=== PATIENT | male | born 1950 | race Caucasian/White ===

== ENCOUNTER 2021-11-19 17:35 | Inpatient (IN) ==
[2021-11-19] MEDS ORDERED: ONDANSETRON 4 MG/2 ML VIAL IV PRN (19:09)
[2021-11-19] MEDS ORDERED: ZOLPIDEM 5 MG TABLET PO PRN (19:09)
[2021-11-19] MEDS ORDERED: morphine 4 MG/ML VIAL IV PRN (19:09)
[2021-11-19] MEDS ORDERED: IBUPROFEN 600 MG TABLET PO PRN (19:09)
[2021-11-19] MEDS ORDERED: ACETAMINOPHEN 325 MG TABLET PO PRN (19:09)
[2021-11-19] MEDS ORDERED: IPRATROPIUM/ALBUTEROL 3 ML AMPUL.NEB NEB PRN (19:09)
[2021-11-19] MEDS ORDERED: DEXTROSE 31 GM ORAL.SUSP PO PRN (19:14)
[2021-11-19] MEDS ORDERED: DEXTROSE 50% 50 ML VIAL IV PRN (19:14)
--- NOTE | 2021-11-19 19:20 | Internal Med History&Physical ---
HPI History of Present Illness Patient information: Note initiated : 11/19/21 at 7:17 pm Service Date, if different from initiated Date: [] Patient: Jared Villegas a 71 y/o M admitted on 11/19/21 for Acute Dialysis and Cellulitis. Chief Complaint: [leg wound with pain] Chief complaint: leg wound with pain History of present illness: Mr. Villegas is a 71 year old M history of end-stage renal disease on hemodialysis, Parkinson's Disease, type 2 diabetes insulin dependent, mixed dyslipidemia, congestive heart failure, COPD oxygen dependent at 3 L/min, presenting with leg wounds with pain as well as dialysis issues. Patient stated that over the past 2 weeks he has increasing leg swelling and pain in his noticed his right leg has been weeping. As a result, he has been bed ridden over the same period of time. He is also committing of nausea with 3 weeks hence intolerable of much oral intakes. He is also having increasing trouble of keeping his dialysis sections due to low blood pressure. He denies any fever or shaking chills. He presented to outside ER which send patients to our center for dialysis need as well as management for presumed leg cellulitis. Constitutional Constitutional: Absent chills, excessive sweating, fatigue, fever(s) or weakness EENT Eyes: Absent blurry vision, change in vision, loss of vision or other visual disturbances Ears: Absent decreased hearing or tinnitus Nose, mouth and throat: Absent abnormal hearing, dry mouth, headache(s), nasal congestion or sore throat Cardiovascular Cardiovascular: Absent chest pain, chest pain at rest, edema, irregular heart rhythm or palpatations Respiratory Respiratory: Absent cough, dyspnea or wheezing Gastrointestinal Gastrointestinal: Absent abdominal pain, constipation, diarrhea, nausea or vomiting Musculoskeletal Musculoskeletal: Absent back pain, deformity, limited range of motion, muscle cramps, muscle weakness or numbness Additional comments: 10/10 sharp lower leg pain Integumentary Integumentary: Present lesions and wounds; Absent rash Additional comments: bilateral lower leg wound with weeping in the right side. Neurological Neurological: Absent focal weakness, headache(s) or numbness Psychiatric Psychiatric: Absent anxiety, depression or hallucinations PFSH PFSH All Active Problems (Updated 11/19/21 @ 19:24 by Dm Abebe MD) Cellulitis, leg (Acute) CHF (congestive heart failure) (Acute) LFTs abnormal (Acute) Parkinson disease (Acute) Mixed dyslipidemia (Acute) T2DM (type 2 diabetes mellitus) (Acute) On home oxygen therapy (Acute) COPD (chronic obstructive pulmonary disease) (Acute) ESRD (end stage renal disease) on dialysis (Acute) MEDS/ALLERGIES Home Medications and Allergies Home Medications Medication Instructions Recorded Confirmed Type amiodarone 200 mg tablet 400 mg PO QDAY 11/19/21 11/19/21 History atorvastatin 10 mg tablet 10 mg PO HS 11/19/21 11/19/21 History blood sugar diagnostic (ReliOn 11/19/21 11/19/21 History Prime Test Strips) cinacalcet 30 mg tablet (Sensipar) 30 mg PO PRN PRN 11/19/21 11/19/21 History diltiazem HCl 60 mg tablet 30 mg PO DAILY 11/19/21 11/19/21 History diltiazem HCl 60 mg tablet 60 mg PO HS 11/19/21 11/19/21 History ferric citrate 210 mg iron tablet 1 tab PO TIDCC 11/19/21 11/19/21 History (Auryxia) furosemide 40 mg tablet 120 mg PO QDAY 11/19/21 11/19/21 History hydrocodone 7.5 mg-acetaminophen 1 - 2 tab PO Q4HP PRN 11/19/21 11/19/21 History 325 mg tablet levalbuterol tartrate 45 1 puff INHALATION BIDP PRN 11/19/21 11/19/21 History mcg/actuation aerosol inhaler (Xopenex HFA) mirtazapine 15 mg tablet 15 mg PO HS 11/19/21 11/19/21 History mupirocin 2 % topical ointment 1 applic TOPICAL QDAY 11/19/21 11/19/21 History sevelamer carbonate 800 mg tablet 1,600 mg PO TIDCC 11/19/21 11/19/21 History (Renvela) sucroferric oxyhydroxide 500 mg 500 mg PO TIDCC 11/19/21 11/19/21 History chewable tablet (Velphoro) EXAM Constitutional General appearance: cooperative and no acute distress Head Head exam: Present atraumatic and normocephalic Eye Eye exam: Present EOMI and PERRL ENT ENT exam: Present mucous membranes moist, normal exam and normal external ear exam Additional comments: Nasal cannula in place Neck Neck exam: Present normal inspection; Absent lymphadenopathy, tenderness or thyromegaly Respiratory Respiratory exam: Absent accessory muscle use, respiratory distress or wheezes Cardiovascular Cardiovascular exam: Present normal rate and rhythm; Absent JVD Additional comments: AV fistula right arm GI/Abdominal GI/Abdominal exam: Present normal bowel sounds and soft; Absent organomegaly or tenderness Rectal Rectal exam: Present deferred Extremities Exam Extremities exam: Present full ROM, normal capillary refill and pedal edema; Absent normal inspection or tenderness Additional comments: AV fistula right arm Erythematic rash with tenderness, swelling, warmth, bilateral lower legs with weeping in the right side Neurological Exam Neurological exam: Present alert, CN II-XII intact and oriented X3; Absent motor sensory deficit Psychiatric Psychiatric exam: Present normal affect and normal mood; Absent anxious or depressed Skin Skin exam: Present dry, erythema and rash; Absent intact Additional comments: AV fistula right arm Erythematic rash with tenderness, swelling, warmth, bilateral lower legs with weeping in the right side A/P Assessment and plan (1) ESRD (end stage renal disease) on dialysis: Status: Acute (2) COPD (chronic obstructive pulmonary disease): Status: Acute (3) On home oxygen therapy: Status: Acute (4) T2DM (type 2 diabetes mellitus): Status: Acute (5) Mixed dyslipidemia: Status: Acute (6) Parkinson disease: Status: Acute (7) LFTs abnormal: Status: Acute (8) CHF (congestive heart failure): Status: Acute (9) Cellulitis, leg: Status: Acute Narrative A/P Narrative: Assessment and Plans: 1. Right leg cellulitis: DDx: venous stasis Inpatient med surg Wound care consult Procalcitonin Serial lactic acid Blood culture cbc w/ auto diff in the morning to trend WBC Ancef IV Tylenol PRN fever/mild pain [place] PRN moderate pain Morphine IV PRN severe pain Physical therapy Occupational therapy 2. ESRD on HD: Consult Dr. Griffith for dialysis needs CMP in the morning 3. Mixed dyslipidemia: Continue statin therapy 4. Parkinson's Disease: Continue to monitor 5. T2DM: HgA1c SSI AC HS Will reconcile home regimen of Insulin 70/30 Accu Chek AC HS Hypoglycemia protocol Diabetic/renal diet 6. LFTs elevation: f/u GI outpatient 7. COPD, home oxygen dependent: Supplemental oxygen therapy DuoNEB NEB PRN wheezing 8. h/o CHF, stable: Lasix PO Supplemental oxygen therapy GI ppx: not currently indicated DVT ppx: Heparin Code status: Full Prognosis: stable Disposition: inpatient med surg; PT OT Time Spent With Patient Time: Total time spent is greater than 50% in coordination of care (as documented) at patient's floor/unit and/or counseling patient: Total time spent with greater than 50% in coordination of care (as documented) at patient's floor/unit and/or counseling patient:: Greater than 35 minutes
--- NOTE | 2021-11-19 20:31 | Nephrology Consult Note ---
HPI Data of Consult Patient: new to practice Consult date: 11/19/21 Requesting physician: Dm Abebe Primary Care Provider: Gaudencio Quispe Consult Narrative Patient Information: Note initiated : 11/19/21 at 8:29 pm Patient: Jared Villegas 71 y/o M admitted on 11/19/21 for Acute Dialysis and Cellulitis. Jared Villegas is a 71-year-old female with end stage renal disease on hemodialysis, chronic anemia due to ESRD, hypertension, diabetes mellitus type 2, Parkinson's disease, mixed dyslipidemia, congestive heart failure, COPD oxygen dependent at 3 L/min admitted on 11/19/21. Nephrology consultation was requested for end stage renal disease. The patient presented to [facility] ED for bilateral leg wounds with progressive pain and weeping especially on the right side. He is also reporting difficulty with HD UF due to hypotension. Last HD was on 11/16/21. He had an admission to [facility] in July 2020. 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 Chief complaint: Bilateral leg wounds with progressive pain and weeping Reason for consult: End stage renal disease on hemodialysis cc:: CC: Dm Abebe MD Constitutional Constitutional: Present weakness; Absent fever(s) EENT Eyes: Absent blurry vision Nose, mouth and throat: Present sore throat Cardiovascular Cardiovascular: Absent chest pain or palpatations Respiratory Respiratory: Present dyspnea Gastrointestinal Gastrointestinal: Absent nausea or vomiting Integumentary Integumentary: Present erythema (bilateral legs) and wounds (bilateral legs) Neurological Neurological: Present weakness; Absent confusion Psychiatric Psychiatric: Absent anxiety or panic attacks Allergic/Immunologic Allergic/Immunologic: Absent tongue swelling or uticaria PFSH PFSH All Active Problems (Updated 11/19/21 @ 19:24 by Dm Abebe MD) Cellulitis, leg (Acute) CHF (congestive heart failure) (Acute) LFTs abnormal (Acute) Parkinson disease (Acute) Mixed dyslipidemia (Acute) T2DM (type 2 diabetes mellitus) (Acute) On home oxygen therapy (Acute) COPD (chronic obstructive pulmonary disease) (Acute) ESRD (end stage renal disease) on dialysis (Acute) MEDS/ALLERGIES Home Medications and Allergies Home Medications Medication Instructions Recorded Confirmed Type amiodarone 200 mg tablet 400 mg PO QDAY 11/19/21 11/19/21 History atorvastatin 10 mg tablet 10 mg PO HS 11/19/21 11/19/21 History blood sugar diagnostic (ReliOn 11/19/21 11/19/21 History Prime Test Strips) cinacalcet 30 mg tablet (Sensipar) 30 mg PO PRN PRN 11/19/21 11/19/21 History diltiazem HCl 60 mg tablet 30 mg PO DAILY 11/19/21 11/19/21 History diltiazem HCl 60 mg tablet 60 mg PO HS 11/19/21 11/19/21 History ferric citrate 210 mg iron tablet 1 tab PO TIDCC 11/19/21 11/19/21 History (Auryxia) furosemide 40 mg tablet 120 mg PO QDAY 11/19/21 11/19/21 History hydrocodone 7.5 mg-acetaminophen 1 - 2 tab PO Q4HP PRN 11/19/21 11/19/21 History 325 mg tablet levalbuterol tartrate 45 1 puff INHALATION BIDP PRN 11/19/21 11/19/21 History mcg/actuation aerosol inhaler (Xopenex HFA) mirtazapine 15 mg tablet 15 mg PO HS 11/19/21 11/19/21 History mupirocin 2 % topical ointment 1 applic TOPICAL QDAY 11/19/21 11/19/21 History sevelamer carbonate 800 mg tablet 1,600 mg PO TIDCC 11/19/21 11/19/21 History (Renvela) sucroferric oxyhydroxide 500 mg 500 mg PO TIDCC 11/19/21 11/19/21 History chewable tablet (Velphoro) Physical Examination Vital Signs Vital signs: Temp Pulse Resp BP Pulse Ox 98.0 F 74 30 H 128/57 90 11/19/21 18:38 11/19/21 18:38 11/19/21 18:38 11/19/21 18:38 11/19/21 18:38 General Appearance General appearance: chronically ill and fatigue EENT EENT: mucous membranes moist Neck Neck: no JVD Respiratory Respiratory: wheezing Cardiovascular Cardiology: edema and regular rate Gastrointestinal Gastrointestinal: no tenderness Integumentary Integumentary: ulcer (bilateral legs) and erythema (bilateral legs) Neurologic Neurologic: no focal deficit and alert and oriented x3 Psychiatric Psychiatric: mood/affect appropriate and cooperative Results Lab Results Lab results: Labs from [facility] ED reviewed A/P Assessment and plan (1) ESRD (end stage renal disease) on dialysis: Assessment and plan: Jared Villegas is a 71-year-old female with end stage renal disease on hemodialysis, chronic anemia due to ESRD, hypertension, diabetes mellitus type 2, Parkinson's disease, mixed dyslipidemia, congestive heart failure, COPD oxygen dependent at 3 L/min admitted on 11/19/21. Nephrology consultation was requested for end stage renal disease. The patient presented to [facility] ED for bilateral leg wounds with progressive pain and weeping especially on the right side. He is also reporting difficulty with HD UF due to hypotension. Last HD was on 11/16/21. He had an admission to [facility] in July 2020. 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 End stage renal disease on hemodialysis. Chronic anemia due to ESRD. Hyponatremia. Hyperkalemia. Metabolic acidosis. Recommendations/Plan: Hemodialysis on 11/20/21 for 3 hours with 3-4 kg UF goal. Midodrine 10 mg will be ordered for am before HD. Status: Acute Time Spent With Patient Time: Total time spent is greater than 50% in coordination of care (as documented) at patient's floor/unit and/or counseling patient:
[2021-11-19] MEDS: INSULIN LISPRO 1 UNIT/0.01 ML UNIT SQ SCH (21:42)
[2021-11-19] MEDS: 0.9 % SODIUM CHLORIDE 10 ML SYRINGE IV SCH (21:44)
[2021-11-19] MEDS: HEPARIN 5,000 UNIT/ML VIAL SQ SCH (21:52)
[2021-11-19] MEDS: MIRTAZAPINE 15 MG TABLET PO SCH (21:52)
[2021-11-19] MEDS: HYDROCODONE/APAP 7.5/325MG TABLET PO PRN (21:53)
[2021-11-19] MEDS: DOCUSATE SODIUM 100 MG CAPSULE PO SCH (21:53)
[2021-11-19] MEDS: ATORVASTATIN 10 MG TABLET PO SCH (21:54)
[2021-11-19] MEDS: DILTIAZEM 30 MG TABLET PO SCH (21:54)
[2021-11-19] MEDS: SENNOSIDES 1 TABLET PO SCH (21:54)
[2021-11-20] MEDS: ceFAZolin 1 GM VIAL IV SCH ×2 (00:51→05:53)
[2021-11-20] MEDS ORDERED: ceFAZolin 1 GM VIAL ONE ×2 (00:52→05:56)
[2021-11-20] MEDS: 0.9 % SODIUM CHLORIDE 10 ML SYRINGE IV SCH ×3 (05:53→21:59)
[2021-11-20] MEDS ORDERED: LEVALBUTEROL TARTRATE 45 MCG INH PRN (06:01)
[2021-11-20 07:36] LABS: Phosphorous 5.2 mg/dL (2.5-4.5)
[2021-11-20 08:15] LABS: ALT/SGPT 44 U/L (<40); AST/SGOT 113 U/L (<40); Albumin 2.4 gm/dL (3.2-5.2); Alkaline Phosphatase 465 U/L (39-117); Bilirubin,Total 6.3 mg/dL (0.1-1.0); Blood Urea Nitrogen 58 mg/dL (8-23); Calcium 8.1 mg/dL (8.6-10.4); Carbon Dioxide 24 mmol/L (22-30); Chloride 93 mmol/L (96-108); Globulin 2.3 gm/dL (2.2-3.7); Glomerular Filtration Rate 9; Glucose 149 mg/dL (70-105)
[2021-11-20] MEDS: INSULIN LISPRO 1 UNIT/0.01 ML UNIT SQ SCH ×4 (08:21→20:30)
[2021-11-20 08:58] LABS: Basophils # (Auto) 0.01 K/mcL (0.00-0.30); Basophils % (Auto) 0.1 % (0.0-2.0); Eosinophils # (Auto) 0.16 K/mcL (0.00-0.70); Eosinophils % (Auto) 1.4 % (0.0-7.0); Hematocrit 34.8 % (40.1-51.0); Hemoglobin 11.9 g/dL (13.7-17.5); Lymphocytes # (Auto) 0.82 K/mcL (1.50-4.80); Lymphocytes % (Auto) 7.3 % (15.5-49.0); Mean Cell Volume 88.3 fL (80.0-100.0); Mean Corpuscular HGB Conc 34.2 g/dL (31.0-36.0); Monocytes # (Auto) 1.08 K/mcL (0.10-0.90); Monocytes % (Auto) 9.7 % (1.0-12.0); Neutrophils % (Auto) 81.5 % (38.0-78.0); Platelet Count 122 K/mcL (140-440); RBC 3.94 M/mcL (4.63-6.08); Red Cell Distribution Width 24.1 % (11.5-14.5); WBC 11.2 K/mcL (4.5-11.0)
[2021-11-20] MEDS ORDERED: MIDODRINE 5 MG TABLET PO SCH (09:00)
[2021-11-20] MEDS: SEVELAMER 800 MG TABLET PO SCH ×3 (09:02→17:31)
[2021-11-20] MEDS: AMIODARONE HCL 200 MG TABLET PO SCH (09:02)
[2021-11-20] MEDS: DILTIAZEM 30 MG TABLET PO SCH ×2 (09:02→20:12)
[2021-11-20] MEDS: DOCUSATE SODIUM 100 MG CAPSULE PO SCH ×2 (09:02→20:13)
[2021-11-20] MEDS ORDERED: METOCLOPRAMIDE 10 MG/2 ML VIAL IV PRN (10:27)
[2021-11-20] MEDS ORDERED: CINACALCET 30 MG TABLET PO ONE (10:30)
--- NOTE | 2021-11-20 10:55 | Nephrology Progress Note ---
SUBJECTIVE Subjective Patient information: Note initiated : 11/20/21 at 10:53 am Patient: Jared Villegas 71 y/o M admitted on 11/19/21 for Acute Dialysis and Cellulitis. Chief Complaint: Bilateral leg pain R>L Pertinent ROS: Bilateral leg pain R>L Trace leg edema No shortness of breath Constitutional Vitals: Vital Signs Temp Pulse Resp BP Pulse Ox 97.2 F 69 20 96/49 93 11/20/21 07:54 11/20/21 07:54 11/20/21 07:54 11/20/21 07:54 11/20/21 07:54 Period Temp Pulse Resp BP Sys/Duarte Pulse Ox Last 24 Hr 97.2 F-98.4 F 65-74 16-30 96-128/49-57 90-93 Intake and Output 11/19/21 11/20/21 11/20/21 21:59 05:59 13:59 Intake Total 200 Output Total 1 Balance -1 200 Weight 179 lb 9.6 oz Intake & Output: Intake & Output 11/19/21 11/20/21 11/20/21 21:59 05:59 13:59 Intake Total 200 Output Total 1 Balance -1 200 Weight 179 lb 9.6 oz Intake: Oral 200 Output: # of times incontinent of urine 1 Other: Stool Size Small Stool Color Brown Brown Stool Consistency Tracy Dry and Hard # Bowel Movements 1 General appearance: cooperative and no acute distress Head Head exam: Present normal inspection Eye Eye exam: Present normal appearance ENT ENT exam: Present mucous membranes moist Respiratory Respiratory exam: Absent respiratory distress Cardiovascular Cardiovascular exam: Present normal rate and rhythm GI/Abdominal GI/Abdominal exam: Present soft; Absent tenderness Extremities Exam Extremities exam: Absent joint swelling or pedal edema Neurological Exam Neurological exam: Present alert and oriented X3 Psychiatric Psychiatric exam: Present normal affect and normal mood Skin Skin exam: Present erythema (bilateral legs) A/P Assessment and plan (1) ESRD (end stage renal disease) on dialysis: Assessment and plan: Jared Villegas is a 71-year-old female with end stage renal disease on hemodialysis, chronic anemia due to ESRD, hypertension, diabetes mellitus type 2, Parkinson's disease, mixed dyslipidemia, congestive heart failure, COPD oxygen dependent at 3 L/min admitted on 11/19/21. Nephrology consultation was requested for end stage renal disease. The patient presented to [facility] ED for bilateral leg wounds with progressive pain and weeping especially on the right side. He is also reporting difficulty with HD UF due to hypotension. Last HD was on 11/16/21. He had an admission to [facility] in July 2020. 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 End stage renal disease on hemodialysis. Left arm AV fistula. Chronic anemia due to ESRD. Hyperkalemia. Metabolic acidosis. Wound with history of calciphylaxis. Recommendations/Plan: Hemodialysis on 11/20/21 for 3 hours with 3-4 kg UF goal. Midodrine 10 mg was ordered for am before HD. The patient seen and evaluated during hemodialysis at 14:50. His BP was good in the beginning but dropped preventing UF. I informed his family at bedside. Status: Acute Time Spent With Patient Time: Total time spent is greater than 50% in coordination of care (as documented) at patient's floor/unit and/or counseling patient:
[2021-11-20] MEDS: MUPIROCIN OINT 2% 22GM TOPICAL SCH (11:14)
[2021-11-20] MEDS: HEPARIN 5,000 UNIT/ML VIAL SQ SCH ×2 (11:14→20:12)
[2021-11-20] MEDS: FUROSEMIDE 40 MG TABLET PO SCH (11:15)
--- NOTE | 2021-11-20 11:34 | Internal Med Progress Note ---
SUBJECTIVE Subjective Patient information: Note initiated : 11/20/21 at 11:25 am Service Date, if different from initiated Date: [] Patient: Jared Villegas a 71 y/o M admitted on 11/19/21 for Acute Dialysis and Cellulitis. Chief Complaint: [] Interval history: Mr. Villegas is a 71 year old M history of end-stage renal disease on hemodialysis, Parkinson's Disease, type 2 diabetes insulin dependent, mixed dyslipidemia, congestive heart failure, COPD oxygen dependent at 3 L/min, presenting with leg wounds with pain as well as dialysis issues. Patient stated that over the past 2 weeks he has increasing leg swelling and pain in his noticed his right leg has been weeping. As a result, he has been bed ridden over the same period of time. He is also committing of nausea with 3 weeks hence intolerable of much oral intakes. He is also having increasing trouble of keeping his dialysis sections due to low blood pressure. He denies any fever or shaking chills. He presented to outside ER which send patients to our center for dialysis need as well as management for presumed leg cellulitis. 11/20: Afebrile overnight. Blood cultures no growth to date Start Rosa Griffith: HD today Spoke with : not interested in aggressive therapy including park recreation manager work up. Will focus on comfort measures (but okay with antibiotics and HD) Patient is c/o severe bilateral legs pain. Denies fever or chills. Denies confusion. Denies shortness of breath. Constitutional Vitals: Vital Signs Temp Pulse Resp BP Pulse Ox 36.2 C 69 20 96/49 93 11/20/21 07:54 11/20/21 07:54 11/20/21 07:54 11/20/21 07:54 11/20/21 07:54 Period Temp Pulse Resp BP Sys/Duarte Pulse Ox Last 24 Hr 36.2 C-36.9 C 65-74 16-30 96-128/49-57 90-93 Intake and Output 11/19/21 11/20/21 11/20/21 21:59 05:59 13:59 Intake Total 200 Output Total 1 Balance -1 200 Weight 81.465 kg Intake & Output: Intake & Output 11/19/21 11/20/21 11/20/21 21:59 05:59 13:59 Intake Total 200 Output Total 1 Balance -1 200 Weight 81.465 kg Intake: Oral 200 Output: # of times incontinent of urine 1 Other: Stool Size Small Stool Color Brown Brown Stool Consistency Tracy Dry and Hard # Bowel Movements 1 General appearance: disheveled and no acute distress Head Head exam: Present atraumatic and normal inspection Eye Eye exam: Present normal appearance ENT ENT exam: Present mucous membranes moist, normal exam and normal external ear exam Neck Neck exam: Present normal inspection Respiratory Respiratory exam: Present normal respiratory exam Cardiovascular Cardiovascular exam: Present normal rate and rhythm Additional comments: AV fistula left arm GI/Abdominal GI/Abdominal exam: Present normal bowel sounds Extremities Exam Extremities exam: Present pedal edema Additional comments: bilateral lower leg wound with weeping in the right side Back Exam Back exam: Present normal inspection Neurological Exam Neurological exam: Present alert and oriented X3 Skin Skin exam: Present intact and warm Additional comments: Jaundice bilateral lower leg wound with weeping in the right side OBJ DATA Labs CBC & Chem 7: 11/20/21 05:16 11/20/21 05:16 Labs: Abnormal Lab Results 11/20/21 11/20/21 11/19/21 05:16 05:16 19:32 WBC 11.2 H RBC 3.94 L Hgb 11.9 L Hct 34.8 L RDW 24.1 H Plt Count 122 L Neut % (Auto) 81.5 H Lymph % (Auto) 7.3 L Lymph # (Auto) 0.82 L [place] # (Auto) 1.08 H Absolute Neutrophils 9.10 H VBG Lactic Acid Potassium 5.8 H Chloride 93 L Anion Gap 18.0 H BUN 58 H Creatinine 6.0 H* Glucose 149 H Calcium 8.1 L Phosphorus 5.2 H Magnesium 2.7 H Total Bilirubin 6.3 H AST 113 H ALT 44 H Alkaline Phosphatase 465 H Total Protein 4.7 L Albumin 2.4 L Procalcitonin 3.44 H 11/19/21 19:32 WBC RBC Hgb Hct RDW Plt Count Neut % (Auto) Lymph % (Auto) Lymph # (Auto) [place] # (Auto) Absolute Neutrophils VBG Lactic Acid 3.1 H Potassium Chloride Anion Gap BUN Creatinine Glucose Calcium Phosphorus Magnesium Total Bilirubin AST ALT Alkaline Phosphatase Total Protein Albumin Procalcitonin Meds: Medications Acetaminophen (Acetaminophen 325 Mg Tablet) 650 mg PO Q6HP PRN; Protocol PRN Reason: Per Pain Protocol/Fever > 101 Hydrocodone Bitart/Acetaminophen (Hydrocodone/Apap 7.5/325mg Tablet) 1 tab PO Q4HP PRN PRN Reason: pain Last Admin: 11/19/21 21:53 Dose: 1 tab Documented by: Albuterol/Ipratropium (Ipratropium/Albuterol 3 Ml Ampul.Neb) 3 ml NEB Q4HRT PRN PRN Reason: Wheezing Amiodarone HCl (Amiodarone Hcl 200 Mg Tablet) [facility] Last Admin: 11/20/21 09:02 Dose: Not Given Documented by: Atorvastatin Calcium (Atorvastatin 10 Mg Tablet) 10 mg PO [facility] Last Admin: 11/19/21 21:54 Dose: 10 mg Documented by: Cefazolin Sodium (Cefazolin 1 Gm Vial) 1 gm IV Q24H [facility]; Protocol Cinacalcet (Cinacalcet 30 Mg Tablet) 30 mg PO MoWeFr@1100 [facility] Dextrose (Dextrose 50% 50 Ml Vial) 0 ml IV UD PRN PRN Reason: Hypoglycemia Diagnostic Test (Pha) (Accu-Chek 1 Each Strip) 1 each FS ACHS [facility] Last Admin: 11/20/21 08:20 Dose: 1 each Documented by: Diltiazem HCl (Diltiazem 30 Mg Tablet) 30 mg PO DAILY [facility] Last Admin: 11/20/21 09:02 Dose: Not Given Documented by: Diltiazem HCl (Diltiazem 30 Mg Tablet) 60 mg PO HS [facility] Last Admin: 11/19/21 21:54 Dose: 60 mg Documented by: Docusate Sodium (Docusate Sodium 100 Mg Capsule) 100 mg PO BID [facility] Last Admin: 11/20/21 09:02 Dose: Not Given Documented by: Furosemide (Furosemide 40 Mg Tablet) 120 mg PO QDAY [facility] Last Admin: 11/20/21 11:15 Dose: Not Given Documented by: Glucose (Dextrose 31 Gm Oral.Susp) 15 gm PO PRN PRN PRN Reason: Hypoglycemia Heparin Sodium (Porcine) (Heparin 5,000 Unit/Ml Vial) 5,000 unit SQ Q12 [facility] Last Admin: 11/20/21 11:14 Dose: Not Given Documented by: Ibuprofen (Ibuprofen 600 Mg Tablet) 600 mg PO QIDP PRN; Protocol PRN Reason: Per Pain Protocol/Fever > 101 Insulin Human Lispro (Insulin Lispro 1 Unit/0.01 Ml Unit) 0 unit SQ [facility]; Protocol Last Admin: 11/20/21 08:21 Dose: Not Given Documented by: Metoclopramide HCl (Metoclopramide 10 Mg/2 Ml Vial) 10 mg IV Q6HP PRN PRN Reason: Nausea And Vomiting Midodrine (Midodrine 5 Mg Tablet) 10 mg PO DAILY [facility] Last Admin: 11/20/21 11:20 Dose: 10 mg Documented by: Mirtazapine (Mirtazapine 15 Mg Tablet) 15 mg PO [facility] Last Admin: 11/19/21 21:52 Dose: 15 mg Documented by: Morphine Sulfate (Morphine 4 Mg/Ml Vial) 4 mg IV Q4HP PRN; Protocol PRN Reason: Per Pain Protocol Mupirocin (Mupirocin Oint 2% 22gm) 1 dose TOPICAL QDAY [facility] Last Admin: 11/20/21 11:14 Dose: Not Given Documented by: Ondansetron HCl (Ondansetron 4 Mg/2 Ml Vial) 4 mg IV Q6HP PRN PRN Reason: Nausea And Vomiting Ferric Citrate [ Auryxia] 210 Mg Tablet 1 dose PO TIDCC [facility] Last Admin: 11/20/21 09:02 Dose: Not Given Documented by: Levalbuterol Tartrate [Xopenex Hfa] 45 Mcg Inh 1 dose INH BIDP PRN PRN Reason: Shortness Of Breath Sucroferric Oxyhydroxide [ Velphoro] 500 Mg Tab [facility] Last Admin: 11/20/21 09:02 Dose: Not Given Documented by: Senna (Sennosides 1 Tablet) 2 tab PO [facility] Last Admin: 11/19/21 21:54 Dose: 2 tab Documented by: Sevelamer Carbonate (Sevelamer 800 Mg Tablet) 1,600 [facility] Last Admin: 11/20/21 09:02 Dose: Not Given Documented by: Sodium Chloride (0.9 % Sodium Chloride 10 Ml Syringe) 10 ml IV Q8 [facility] Last Admin: 11/20/21 05:53 Dose: 10 ml Documented by: Zolpidem Tartrate (Zolpidem 5 Mg Tablet) 5 mg PO HSP PRN PRN Reason: Insomnia A/P Assessment and plan (1) ESRD (end stage renal disease) on dialysis: Status: Acute (2) COPD (chronic obstructive pulmonary disease): Status: Acute (3) On home oxygen therapy: Status: Acute (4) T2DM (type 2 diabetes mellitus): Status: Acute (5) Mixed dyslipidemia: Status: Acute (6) Parkinson disease: Status: Acute (7) LFTs abnormal: Status: Acute (8) CHF (congestive heart failure): Status: Acute (9) Cellulitis, leg: Status: Acute Narrative A/P Narrative: Assessment and Plans: 1. Right leg cellulitis: DDx: venous stasis Inpatient med surg Wound care consult Procalcitonin 3.44 elevated Serial lactic acid 3.1, repeat Blood culture no growth to date cbc w/ auto diff in the morning to trend WBC Ancef IV Tylenol PRN fever/mild pain [place] PRN moderate pain Morphine IV PRN severe pain Physical therapy Occupational therapy 2. ESRD on HD: Consult Dr. Grfifith for dialysis needs CMP in the morning Midodrine 3. Mixed dyslipidemia: Continue statin therapy 4. Parkinson's Disease: Continue to monitor 5. T2DM: HgA1c SSI AC HS Accu Chek AC HS Hypoglycemia protocol Diabetic/renal diet 6. LFTs elevation: does not want any further hepatology work up 7. COPD, home oxygen dependent: Supplemental oxygen therapy DuoNEB NEB PRN wheezing 8. h/o CHF, stable: Lasix PO Supplemental oxygen therapy GI ppx: not currently indicated DVT ppx: Heparin Code status: DNI DNR Prognosis: Guarded Disposition: inpatient med surg; PT OT Time Spent With Patient Time: Total time spent is greater than 50% in coordination of care (as documented) at patient's floor/unit and/or counseling patient: Total time spent with greater than 50% in coordination of care (as documented) at patient's floor/unit and/or counseling patient:: Greater than 35 minutes QUALITY VTE Deep Vein Thrombosis/Pulmonary Embolism Present on Admission: No
[2021-11-20] MEDS: HYDROCODONE/APAP 7.5/325MG TABLET PO PRN ×2 (15:55→20:12)
[2021-11-20] MEDS ORDERED: LORazepam 2 MG/ML VIAL IV PRN (17:24)
[2021-11-20] MEDS: MIRTAZAPINE 15 MG TABLET PO SCH (20:12)
[2021-11-20] MEDS: ATORVASTATIN 10 MG TABLET PO SCH (20:13)
[2021-11-20] MEDS: SENNOSIDES 1 TABLET PO SCH (20:13)
[2021-11-21] MEDS: HYDROCODONE/APAP 7.5/325MG TABLET PO PRN (02:44)
[2021-11-21] MEDS: 0.9 % SODIUM CHLORIDE 10 ML SYRINGE IV SCH (05:30)
[2021-11-21 06:50] LABS: Basophils # (Auto) 0.01 K/mcL (0.00-0.30); Basophils % (Auto) 0.1 % (0.0-2.0); Eosinophils # (Auto) 0.17 K/mcL (0.00-0.70); Eosinophils % (Auto) 1.5 % (0.0-7.0); Hematocrit 35.8 % (40.1-51.0); Hemoglobin 12.2 g/dL (13.7-17.5); Lymphocytes # (Auto) 0.76 K/mcL (1.50-4.80); Lymphocytes % (Auto) 6.9 % (15.5-49.0); Mean Corpuscular HGB Conc 34.1 g/dL (31.0-36.0); Mean Platelet Volume 10.2 fL (7.4-10.4); Monocytes # (Auto) 0.82 K/mcL (0.10-0.90); Monocytes % (Auto) 7.5 % (1.0-12.0); Platelet Count 116 K/mcL (140-440); RBC 4.07 M/mcL (4.63-6.08); Red Cell Distribution Width 24.3 % (11.5-14.5)
[2021-11-21 07:15] LABS: ALT/SGPT 58 U/L (<40); AST/SGOT 260 U/L (<40); Albumin 2.3 gm/dL (3.2-5.2); Albumin/Globulin Ratio 0.9 (1.0-2.3); Alkaline Phosphatase 472 U/L (39-117); Bilirubin,Total 6.5 mg/dL (0.1-1.0); Blood Urea Nitrogen 34 mg/dL (8-23); Calcium 7.9 mg/dL (8.6-10.4); Carbon Dioxide 27 mmol/L (22-30); Chloride 93 mmol/L (96-108); Globulin 2.6 gm/dL (2.2-3.7); Glomerular Filtration Rate 14; Glucose 93 mg/dL (70-105); Phosphorous 4.1 mg/dL (2.5-4.5)
[2021-11-21] MEDS: INSULIN LISPRO 1 UNIT/0.01 ML UNIT SQ SCH (07:59)
--- NOTE | 2021-11-21 08:22 | Nephrology Progress Note ---
SUBJECTIVE Subjective Patient information: Note initiated : 11/21/21 at 8:21 am Patient: Jared Villegas 71 y/o M admitted on 11/19/21 for Acute Dialysis and Cellulitis. Chief Complaint: Bilateral leg pain Pertinent ROS: Bilateral leg pain with erythema and wounds Constitutional Vitals: Vital Signs Temp Pulse Resp BP Pulse Ox 98.1 F 68 22 101/51 94 11/21/21 07:53 11/21/21 07:53 11/21/21 07:53 11/21/21 07:53 11/21/21 03:29 Period Temp Pulse Resp BP Sys/Duarte Pulse Ox Last 24 Hr 96.9 F-98.1 F 65-81 14-22 62-112/38-58 89-96 Intake and Output 11/20/21 11/21/21 11/21/21 21:59 05:59 13:59 Intake Total 650 120 Output Total 0 Balance 650 120 Weight 186 lb Intake & Output: Intake & Output 11/20/21 11/21/21 11/21/21 21:59 05:59 13:59 Intake Total 650 120 Output Total 0 Balance 650 120 Weight 186 lb Intake: Oral 650 120 Output: Hemodialysis UF 0 Other: Meal Dinner Percent of Meal Consumed 25% # Voids 1 General appearance: cooperative and no acute distress Head Head exam: Present normal inspection Eye Eye exam: Present normal appearance ENT ENT exam: Present mucous membranes moist Respiratory Respiratory exam: Absent respiratory distress Cardiovascular Cardiovascular exam: Present normal rate and rhythm GI/Abdominal GI/Abdominal exam: Present soft; Absent tenderness Extremities Exam Extremities exam: Absent joint swelling or pedal edema Neurological Exam Neurological exam: Present alert and oriented X3 Psychiatric Psychiatric exam: Present normal affect and normal mood Skin Skin exam: Present erythema (bilateral legs) A/P Assessment and plan (1) ESRD (end stage renal disease) on dialysis: Assessment and plan: Jared Villegas is a 71-year-old female with end stage renal disease on hemodialysis, chronic anemia due to ESRD, hypertension, diabetes mellitus type 2, Parkinson's disease, mixed dyslipidemia, congestive heart failure, COPD oxygen dependent at 3 L/min admitted on 11/19/21. Nephrology consultation was requested for end stage renal disease. The patient presented to [facility] ED for bilateral leg wounds with progressive pain and weeping especially on the right side. He is also reporting difficulty with HD UF due to hypotension. He had an admission to [facility] in July 2020. 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 End stage renal disease on hemodialysis. Left arm AV fistula. Chronic anemia due to ESRD. Hyperkalemia, resolved. Metabolic acidosis, resolved. Wounds with history of calciphylaxis. Progress: Hemodialysis on 11/23/21 for 3 hours with limited UF despite Midodrine 10 mg before HD. He does not have much tissue edema that could be dialyzed. Recommendations/Plan: Switching to comfort care only. Status: Acute Time Spent With Patient Time: Total time spent is greater than 50% in coordination of care (as documented) at patient's floor/unit and/or counseling patient:
[2021-11-21] MEDS: AMIODARONE HCL 200 MG TABLET PO SCH (08:47)
[2021-11-21] MEDS: SEVELAMER 800 MG TABLET PO SCH (08:47)
[2021-11-21] MEDS ORDERED: ceFAZolin 1 GM VIAL IV SCH (09:00)
[2021-11-21] MEDS: HEPARIN 5,000 UNIT/ML VIAL SQ SCH (09:18)
[2021-11-21] MEDS: DOCUSATE SODIUM 100 MG CAPSULE PO SCH (09:19)
[2021-11-21] MEDS: DILTIAZEM 30 MG TABLET PO SCH (09:19)
[2021-11-21] MEDS: MUPIROCIN OINT 2% 22GM TOPICAL SCH (09:19)
[2021-11-21] MEDS: FUROSEMIDE 40 MG TABLET PO SCH (09:19)
--- NOTE | 2021-11-21 10:58 | Discharge Summary ---
Discharge Provider Provider Patient information: Note initiated : 11/21/21 at 10:54 am Service Date, if different from initiated Date: [] Patient: Jared Villegas 71 y/o M admitted on 11/19/21 for Acute Dialysis and Cellulitis. Chief Complaint: [] Date of admission: 11/19/21 18:21 Discharge date: 11/21/21 Primary care physician: Gaudencio Quispe Attending physician on admission: Dm Verduzco Pui Consults: 11/19/21 19:16 Consult to Physician [CONS] Routine Comment: HD Consulting Provider: Rebeca Griffith Reason For Exam: Physician to Consult Attending physician on discharge: Dm Verduzco Pui Discharge Meds Discharge Medications Home Medications furosemide 40 mg tablet 120 mg PO QDAY 11/19/21 [History Confirmed 11/19/21 Last Taken Unknown] levalbuterol tartrate 45 mcg/actuation aerosol inhaler (Xopenex HFA) 1 puff INHALATION BIDP PRN 11/19/21 [History Confirmed 11/19/21 Last Taken Unknown] mirtazapine 15 mg tablet 15 mg PO HS 11/19/21 [History Confirmed 11/19/21 Last T aken Unknown] mupirocin 2 % topical ointment 1 applic TOPICAL QDAY 11/19/21 [History Confirmed 11/19/21 Last Taken Unknown] hydrocodone 7.5 mg-acetaminophen 325 mg tablet 1 - 2 tab PO Q4HP PRN #20 tab 11/21/21 [Rx Last Taken Unknown] ibuprofen 600 mg tablet 600 mg PO QIDP PRN #20 tab 11/21/21 [Rx Last Taken Unknown] lorazepam 2 mg tablet (Ativan) 2 mg PO TID PRN #30 tab 11/21/21 [Rx Last Taken Unknown] morphine 30 mg immediate release tablet 30 mg PO Q6H PRN #30 tab 11/21/21 [Rx Last Taken Unknown] COURSE Hospital Course Hospital course: Patient was admitted on November 19, 2021 for bilateral leg wounds due to venous stasis complicated by inability to tolerate hemodialysis as part of the treatment for end-stage renal disease. [employer] was consulted and made arrangement for hemodialysis but patient did not tolerate dialysis due to low blood pressure. I had a long talk with family at the bedside together with my caseworker protective services and we finally reached the consensus of switching to comfort care only. Patient was being discharged to home with home hospice on day 3 hospitalizations. All questions were answered prior to patient being physically discharged. He does not want more dialysis Discharge diagnosis: ESRD on hemodialysis with associated venous stasis Time Spent with Patient Time attestation: Total time spent providing and/or coordinating discharge services: Time spent: Greater than 30 minutes EXAM Constitutional Vitals: Temp Pulse Resp BP Pulse Ox 36.7 C 68 22 101/51 94 11/21/21 07:53 11/21/21 07:53 11/21/21 07:53 11/21/21 07:53 11/21/21 03:29 General appearance: cooperative, disheveled and no acute distress Head Head exam: Present atraumatic and normocephalic Eye Eye exam: Present EOMI and PERRL ENT ENT exam: Present mucous membranes moist, normal exam and normal external ear exam Neck Neck exam: Present normal inspection; Absent lymphadenopathy, tenderness or thyromegaly Respiratory Respiratory exam: Absent accessory muscle use, respiratory distress or wheezes Cardiovascular Cardiovascular exam: Present normal rate and rhythm; Absent JVD Additional comments: AV fistula left arm GI/Abdominal GI/Abdominal exam: Present normal bowel sounds and soft; Absent organomegaly or tenderness Rectal Rectal exam: Present deferred Extremities Exam Extremities exam: Present full ROM, normal capillary refill, normal inspection and pedal edema; Absent tenderness Neurological Exam Neurological exam: Present alert, CN II-XII intact and oriented X3; Absent motor sensory deficit Psychiatric Psychiatric exam: Present normal affect and normal mood; Absent anxious or depressed Skin Skin exam: Present dry, erythema, rash and warm; Absent intact Additional comments: juandice venous stasis with weeping right > left lower legs Discharge Data Data Completed and Pending Labs on day of discharge: Labs from last 24 hours 11/21/21 11/21/21 11/20/21 05:17 05:17 12:15 WBC 11.0 RBC 4.07 L Hgb 12.2 L Hct 35.8 L MCV 88.0 MCH 30.0 MCHC 34.1 RDW 24.3 H Plt Count 116 L MPV 10.2 Neut % (Auto) 84.0 H Lymph % (Auto) 6.9 L [place] % (Auto) 7.5 Eos % (Auto) 1.5 Baso % (Auto) 0.1 Lymph # (Auto) 0.76 L [place] # (Auto) 0.82 Eos # (Auto) 0.17 Baso # (Auto) 0.01 Absolute Neutrophils 9.21 H VBG Lactic Acid 3.8 H Sodium 133 Potassium 4.9 Chloride 93 L Carbon Dioxide 27 Anion Gap 13.0 BUN 34 H Creatinine 3.9 H GFR Calculation 14 Glucose 93 Calcium 7.9 L Phosphorus 4.1 Magnesium 2.4 Total Bilirubin 6.5 H AST 260 H ALT 58 H Alkaline Phosphatase 472 H Total Protein 4.9 L Albumin 2.3 L Globulin 2.6 Albumin/Globulin Ratio 0.9 L Preliminary micro results at discharge 11/19/21 19:38 Blood Culture - Preliminary Blood 11/19/21 19:32 Blood Culture - Preliminary Blood Discharge Plan Patient/Caregiver Discharge Instructions Activity: increase activity as tolerated Diet: Renal/Consistent Carbs Prescriptions: New ibuprofen 600 mg Tablet 600 mg PO QIDP PRN (Reason: Per Pain Protocol/Fever > 101) Qty: 20 0RF morphine 30 mg tablet 30 mg PO Q6H PRN (Reason: pain) Qty: 30 0RF lorazepam [Ativan] 2 mg tablet 2 mg PO TID PRN (Reason: anxiety) Qty: 30 0RF Continued furosemide 40 mg tablet 120 mg PO QDAY 0RF mirtazapine 15 mg tablet 15 mg PO HS 0RF levalbuterol tartrate [Xopenex HFA] 45 mcg/actuation HFA aerosol inhaler 1 puff inhalation BIDP PRN (Reason: Shortness Of Breath) 0RF mupirocin 2 % ointment 1 applic topical QDAY 0RF Rx Instructions: apply to open areas daily hydrocodone-acetaminophen 7.5-325 mg tablet 1 - 2 tab PO Q4HP PRN (Reason: pain) Qty: 20 0RF Discontinued atorvastatin 10 mg tablet 10 mg PO HS 0RF amiodarone 200 mg tablet 400 mg PO QDAY 0RF diltiazem HCl 60 mg tablet 30 mg PO DAILY 0RF cinacalcet [Sensipar] 30 mg tablet 30 mg PO PRN PRN (Reason: dialysis) 0RF Rx Instructions: take with dialysis sevelamer carbonate [Renvela] 800 mg tablet 1,600 mg PO TIDCC 0RF Velphoro 500 mg tablet,chewable 500 mg PO TIDCC 0RF Auryxia 210 mg iron tablet 1 tab PO TIDCC 0RF diltiazem HCl 60 mg tablet 60 mg PO HS 0RF (DME) ReliOn Prime Test Strips Strip 1 strip MISCELLANEOUS 0RF Rx Instructions: BID prn Follow Up Plan Follow up with: Gaudencio Quispe MD [Primary Care Provider] - Patient Disposition: Hospice - Home Rehab Potential: Undetermined I certify that the patient requires SNF services: No Overall status at discharge: patient is not back to baseline Discharge Orders: Discharge Order (Routine); Ordered 11/21/21 Ordered By: Dm AGUILA VTE Deep Vein Thrombosis/Pulmonary Embolism Present on Admission: No
[2021-11-21] MEDS ORDERED: CINACALCET 30 MG TABLET PO SCH (11:00)
== END 2021-11-21 12:20 | disposition hospice, home (50) | DRG 602 ==
LOC: MEDSUR → OBSVTOIN 18:21
PROVIDERS: ADMIT Internal Medicine; ATTEND Internal Medicine